=== PATIENT | male | born 1990 | race Two or more races ===

== ENCOUNTER 2016-09-07 10:22 | Emergency (ER) | payer SELFPAY ==
[~2016-09-07] VITALS: Ht 165.1 cm; Wt 68.9 kg
[2016-09-07] MEDS ORDERED: SODIUM CHLORIDE 0.9% 1,000 ML IV ONE (10:47)
[2016-09-07] MEDS ORDERED: ONDANSETRON 2MG/ML, 2ML IVPush ONE (11:00)
[2016-09-07] MEDS ORDERED: SODIUM CHLORIDE 0.9% 1,000ML IVBOLUS ONE (11:00)
[2016-09-07] MEDS ORDERED: SODIUM CHLORIDE FLUSH 10ML SYR IVF ONE (11:00)
[2016-09-07] MEDS ORDERED: FAMOTIDINE 20 MG/2 ML IVP ONE (11:00)
[2016-09-07] MEDS ORDERED: MAALOX/HYOSCYAMINE/LIDOCAINE 45 ML BOTTLE PO ONE (11:00)
[2016-09-07] MEDS ORDERED: ONDANSETRON 2MG/ML, 2ML ONE (11:06)
[2016-09-07] MEDS ORDERED: MAALOX/HYOSCYAMINE/LIDOCAINE 45 ML BOTTLE ONE (11:06)
[2016-09-07] MEDS ORDERED: FAMOTIDINE 20 MG/2 ML ONE (11:06)
[2016-09-07 11:14] LABS: ASPARTATE AMINO TRANSFERASE 28 U/L (15-37); BLOOD UREA NITROGEN 14 mg/dL (7-18)
[2016-09-07 11:20] LABS: ANISOCYTOSIS 1+; HYPOCHROMIA 1+; MICROCYTOSIS 1+; POIKILOCYTOSIS 1+; POLYCHROMASIA 1+
[2016-09-07 12:36] VITALS: BP 121/59
== END 2016-09-07 12:39 | disposition home or self-care (01) ==
LOC: ED 10:37
DX: K25.3 Acute gastric ulcer without hemorrhage or perforation (principal); R11.10 Vomiting, unspecified; R10.13 Epigastric pain; F17.200 Nicotine dependence, unspecified, uncomplicated
CPT/HCPCS: 36415; 76700; 80053; 83690; 85025; 96361; 96374; 96375; 99285; J2405; J7030; S0028

== ENCOUNTER 2017-10-10 06:58 | Emergency (ER) | payer SELFPAY ==
[~2017-10-10] VITALS: Ht 165.1 cm; Wt 65.6 kg
[2017-10-10 07:00] VITALS: BP 135/84
[2017-10-10] MEDS ORDERED: IBUPROFEN 200 MG TABLET PO ONE (07:30)
[2017-10-10] MEDS ORDERED: IBUPROFEN 200 MG TABLET ONE (07:31)
== END 2017-10-10 08:29 | disposition home or self-care (01) ==
LOC: ED 08:07
DX: S33.5XXA Sprain of ligaments of lumbar spine, initial encounter (principal); W18.2XXA Fall in (into) shower or empty bathtub, initial encounter; Y93.89 Activity, other specified; Y92.098 Other place in other non-institutional residence as the place of occurrence of the external cause; Y99.8 Other external cause status
CPT/HCPCS: 72110; 99284